=== PATIENT | female | born 1955 | race Caucasian/White ===

== ENCOUNTER 2020-09-06 11:47 | Emergency (ER) | payer OTHER ==
[~2020-09-06 11:47] MED LIST: ACTONEL5 MG PO; ASPIRIN CHEWABL81 MG PO; CALCIUM + VITA1 EACH PO; CARAFATE1 GM PO; HCTZ25 MG PO; LIDOCAINE 5% P1 EACH TOP; LIPITOR20 MG PO; MAG-OXIDE 400M400 MG PO; METOPROLOL TART25 MG PO; PANTOPRAZOLE SO40 MG PO; POTASSIUM CHLO10 ME1 PO
[2020-09-06 12:28] LABS: BASOPHIL 0.4 % (0-2); EOSINOPHIL 0 % (0-7); HCT 31.4 % (37.0-47.0); HGB 10.1 g/dl (12.5-16.0); LYMPHOCYTE 13.6 % (15-48); MCH 26.6 pg (25.0-31.0); MCHC 32.2 g/dL (32.0-36.0); MCV 82.8 fL (78.0-100.0); MONOCYTE 9.3 % (0-12); MPV 10.9 fL (6.0-9.5); NEUTROPHIL 76.1 % (41-80); NRBC 0; PLT 162 K/uL (150-400); RBC 3.79 M/uL (4.20-5.40); RDW 14.5 % (11.5-14.0); WBC 4.7 K/uL (4.0-10.5)
[2020-09-06 12:49] LABS: ALBUMIN 2.8 g/dL (3.4-5.0); BILIRUBIN - TOTAL 0.6 mg/dL (0.2-1.0); GLOBULIN (CALCULATION) 5.3 g/dL; POTASSIUM 3.7 mmol/L (3.5-5.1); TOTAL PROTEIN 8.1 g/dL (6.4-8.2)
[2020-09-06] MEDS ORDERED: NORCO 5-325 TA1 EACH PO (15:19)
== END 2020-09-06 15:30 | disposition home or self-care (01) ==
LOC: FER 11:47
PROVIDERS: Emergency Medicine
DX: S42.212A Unspecified displaced fracture of surgical neck of left humerus, initial encounter for closed fracture (principal); R55 Syncope and collapse; I10 Essential (primary) hypertension; W18.30XA Fall on same level, unspecified, initial encounter; Y92.009 Unspecified place in unspecified non-institutional (private) residence as the place of occurrence of the external cause
CPT/HCPCS: 36415; 71045; 73030; 73200; 80053; 84484; 85025; 93005; J2270; J2405

== ENCOUNTER 2020-09-16 12:42 | Emergency (ER) | payer OTHER ==
[~2020-09-16 12:42] MED LIST changes: +NORCO 5-325 TA1 EACH PO
[2020-09-16 15:01] LABS: BASOPHIL 0.6 % (0-2); EOSINOPHIL 5.2 % (0-7); HCT 28.5 % (37.0-47.0); HGB 9.2 g/dl (12.5-16.0); LYMPHOCYTE 8.5 % (15-48); MCHC 32.3 g/dL (32.0-36.0); MCV 83.6 fL (78.0-100.0); MONOCYTE 6.4 % (0-12); MPV 10.9 fL (6.0-9.5); NEUTROPHIL 78.7 % (41-80); NRBC 0; PLT 279 K/uL (150-400); RBC 3.41 M/uL (4.20-5.40); RDW 14.5 % (11.5-14.0); WBC 4.8 K/uL (4.0-10.5)
[2020-09-16 15:24] LABS: ALBUMIN 2.4 g/dL (3.4-5.0); BILIRUBIN - TOTAL 0.5 mg/dL (0.2-1.0); BUN/CREAT RATIO (CALC) 21.6 RATIO; CREATININE 0.88 mg/dL (0.51-0.95); POTASSIUM 4.3 mmol/L (3.5-5.1); TOTAL PROTEIN 8.4 g/dL (6.4-8.2)
[2020-09-16 15:39] LABS: LACTIC ACID 0.9 mmol/L (0.4-1.9)
[2020-09-16 15:57] LABS: BILIRUBIN NEGATIVE (NEGATIVE); BLOOD TRACE-INTACT Ery/uL (NEGATIVE); COLOR YELLOW (YELLOW); GLUCOSE (U) NORMAL (NORMAL); LEUKOCYTES 3+ Leu/uL (NEGATIVE); NITRITE POSITIVE (NEGATIVE); PROTEIN TRACE (LOW) mg/dL (NEGATIVE)
[2020-09-16 15:58] LABS: CLARITY HAZY (CLEAR)
[2020-09-16 16:00] LABS: AMPHETAMINES NEGATIVE (NEGATIVE); BARBITURATES NEGATIVE (NEGATIVE); ECSTASY (MDMA) NEGATIVE (NEGATIVE); MARIJUANA (THC) NEGATIVE (NEGATIVE); METHADONE NEGATIVE (NEGATIVE); OPIATES POSITIVE (NEGATIVE); OXYCODONE NEGATIVE (NEGATIVE)
[2020-09-16 16:14] LABS: BACTERIA 4+; MUCOUS MODERATE
[2020-09-16] MEDS ORDERED: AUGMENTIN 875-1 EACH PO (17:27)
== END 2020-09-16 17:56 | disposition home or self-care (01) ==
LOC: FER 12:42 → FDNC 12:42 → FER 17:56
PROVIDERS: Internal Medicine
DX: N39.0 Urinary tract infection, site not specified (principal); R53.1 Weakness; R53.81 Other malaise; R53.83 Other fatigue; I10 Essential (primary) hypertension; Z90.49 Acquired absence of other specified parts of digestive tract; Z98.51 Tubal ligation status
CPT/HCPCS: 36415; 71045; 80053; 80305; 81001; 83605; 83690; 85025; 87076; 87088; 87186; J0696; J7030